=== PATIENT | female | born 1950 | race Hispanic/Latino ===

== ENCOUNTER → 2020-12-30 | Outpatient (CLI) | payer OTHER ==
[~2020-12-30] MED LIST: AEC81 PO; CALC-1174 PO; CHOL50004 PO; CYAN-52 PO; LACT1CAP78 PO; LISI1TAB51 PO; METO-391 PO; PIOG1TAB7 PO
== END | disposition home or self-care (01) ==
LOC: RAH 15:59
PROVIDERS: ATTEND Internal Medicine
DX: M77.32 Calcaneal spur, left foot (principal); M79.89 Other specified soft tissue disorders; M79.672 Pain in left foot; M25.872 Other specified joint disorders, left ankle and foot
CPT/HCPCS: 73630

== ENCOUNTER → 2022-12-28 | Outpatient (CLI) | payer OTHER | END | disposition home or self-care (01) | LOC: RAH 14:11 | PROVIDERS: ATTEND Internal Medicine | DX: S09.90XA Unspecified injury of head, initial encounter (principal); G93.89 Other specified disorders of brain; R51.9 Headache, unspecified; W19.XXXA Unspecified fall, initial encounter; Y93.89 Activity, other specified; Y92.89 Other specified places as the place of occurrence of the external cause; Y99.8 Other external cause status | CPT/HCPCS: 70450 ==

== ENCOUNTER → 2023-01-16 | Outpatient (CLI) | payer OTHER | END | disposition home or self-care (01) | LOC: RAH 13:00 | PROVIDERS: ATTEND Internal Medicine | DX: I72.2 Aneurysm of renal artery (principal); I70.1 Atherosclerosis of renal artery | CPT/HCPCS: 74176 ==

== ENCOUNTER → 2023-01-31 | Outpatient (CLI) | payer OTHER ==
[~2023-01-31] MED LIST changes: +IOHEXOL 350 MG/ML 100ML INFUS..BTL IV ONE
== END | disposition home or self-care (01) ==
LOC: RAH 10:55
PROVIDERS: ATTEND Internal Medicine Cardiovascular Disease
DX: I72.2 Aneurysm of renal artery (principal); K57.30 Diverticulosis of large intestine without perforation or abscess without bleeding; M47.815 Spondylosis without myelopathy or radiculopathy, thoracolumbar region; K44.9 Diaphragmatic hernia without obstruction or gangrene; I70.0 Atherosclerosis of aorta
CPT/HCPCS: 74174; Q9967

== ENCOUNTER → 2023-06-27 | Outpatient (CLI) | payer OTHER ==
[~2023-06-27] MED LIST changes: -IOHEXOL 350 MG/ML 100ML INFUS..BTL IV ONE
== END | disposition home or self-care (01) ==
LOC: RAH 10:17
PROVIDERS: ATTEND Internal Medicine
DX: S89.92XD Unspecified injury of left lower leg, subsequent encounter (principal); M77.52 Other enthesopathy of left foot and ankle; M17.12 Unilateral primary osteoarthritis, left knee; M79.605 Pain in left leg; X58.XXXD Exposure to other specified factors, subsequent encounter
CPT/HCPCS: 73562; 73610

== ENCOUNTER → 2025-04-24 | Outpatient (CLI) | payer OTHER ==
--- NOTE | 2025-04-24 13:03 | HMCIMG ---
FOOT COMP 3+VWS RT REASON: FALL INJURY, INITAL ENCOUNTER TECHNIQUE: 3 views were obtained. FINDINGS: There is no evidence of fracture or dislocation. There is no joint effusion. The soft tissues appear unremarkable. There is no evidence of a radiopaque foreign body. Some osteopenia. There is a prominent dorsal and ventral calcaneal spurs. There are vascular calcification suggesting of small vessel disease. IMPRESSION: No acute fracture or dislocation. Osteopenia Prominent dorsal and ventral calcaneal spur Vascular calcification suggesting of small vessel disease.
--- NOTE | 2025-04-24 13:05 | HMCIMG ---
RIGHT HIP RADIOGRAPHS - 2 VIEWS INDICATION: Pain COMPARISON: None FINDINGS: AP and abduction views. No acute fracture or subluxation identified. There is osteopenia of the osseous structure. The pelvis demonstrate no evidence of any abnormality. Femoral head is well formed without osteochondral erosion or radiographic evidence for avascular necrosis. No radiopaque foreign body noted. IMPRESSION: No evidence for fracture or dislocation.
--- NOTE | 2025-04-24 13:06 | HMCIMG ---
ANKLE COMP 3VWS RT REASON: FALL INJURY, INITAL ENCOUNTER TECHNIQUE: 3 views were obtained. FINDINGS: There is no evidence of fracture or dislocation. There is no joint effusion. The ankle mortise joint appears to be anatomical position. The soft tissues appear unremarkable. There is no evidence of a radiopaque foreign body. There is osteopenia of the osseous structure. There is a prominent dorsal and ventral calcaneal spur. There are vascular calcification suggesting of small vessel disease. IMPRESSION: No acute fracture or dislocation. Prominent dorsal and ventral calcaneal spur Osteopenia Vascular calcification suggesting of small vessel disease.
--- NOTE | 2025-04-24 13:07 | HMCIMG ---
ELBOW COMP 3+VWS RT REASON: FALL INJURY, INITAL ENCOUNTER TECHNIQUE: 4 views were obtained. FINDINGS: There is no evidence of fracture or dislocation. There is no joint effusion. The soft tissues appear unremarkable. There is no evidence of a radiopaque foreign body. There is mild osteopenia. IMPRESSION: No acute fracture or dislocation Mild osteopenia
--- NOTE | 2025-04-24 13:08 | HMCIMG ---
RIBS UNI RT W PA CHEST 3+ VWS REASON: FALL INJURY, INITAL ENCOUNTER TECHNIQUE: 4 views were obtained. FINDINGS: There is no evidence of fracture or dislocation. There is no joint effusion. The soft tissues appear unremarkable. There is no evidence of a radiopaque foreign body. There is suggestion of possible gallstone would recommend ultrasound for further evaluation. There is osteopenia of the osseous structure. IMPRESSION: No acute fracture or dislocation . Osteopenia Suspicion for possible gallstone would recommend ultrasound of the abdomen for further workup.
--- NOTE | 2025-04-24 13:09 | HMCIMG ---
SHOULDER COMP 2+VWS RT REASON: FALL INJURY, INITAL ENCOUNTER TECHNIQUE: 2 views were obtained. FINDINGS: There is no evidence of fracture or dislocation. There is no joint effusion. The soft tissues appear unremarkable. There is no evidence of a radiopaque foreign body. This osteoarthropathy with narrowing of the right AC joint also mild narrowing of the glenohumeral joint. 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
== END | disposition home or self-care (01) ==
LOC: RAH 08:49
PROVIDERS: ATTEND Internal Medicine
DX: S59.901A Unspecified injury of right elbow, initial encounter (principal); S79.911A Unspecified injury of right hip, initial encounter; M19.011 Primary osteoarthritis, right shoulder; M79.604 Pain in right leg; M85.811 Other specified disorders of bone density and structure, right shoulder; M85.88 Other specified disorders of bone density and structure, other site; M77.31 Calcaneal spur, right foot; M85.871 Other specified disorders of bone density and structure, right ankle and foot; W19.XXXA Unspecified fall, initial encounter; Y93.89 Activity, other specified; Y92.89 Other specified places as the place of occurrence of the external cause; Y99.8 Other external cause status
CPT/HCPCS: 71101; 73030; 73080; 73502; 73610; 73630